=== PATIENT | male | born 1960 | race Caucasian/White ===

== ENCOUNTER 2024-07-30 13:53 | Inpatient (IN) | payer OTHER ==
[2024-07-30 14:21] VITALS: BMI 22.2
[2024-07-30] MEDS ORDERED: MAGNESIUM HYDROX 2400MG/30ML ORAL SUSPENSION 30 ML CUP PO PRN (14:31)
[2024-07-30] MEDS ORDERED: NALOXONE (NARCAN) HCL 4 MG/0.1 ML SPRAY NS PRN (14:31)
[2024-07-30] MEDS ORDERED: guaiFENesin 600 MG TABLET.ER (FP) PO PRN (14:31)
[2024-07-30] MEDS ORDERED: BENZONATATE 200 MG CAPSULE PO PRN (14:31)
[2024-07-30] MEDS ORDERED: LOPERAMIDE HCL 2 MG CAPSULE PO PRN (14:31)
[2024-07-30] MEDS ORDERED: NICOTINE POLACRILEX 2 MG LOZENGE BC PRN (14:31)
[2024-07-30] MEDS ORDERED: MAG HYDROX/AL HYDROX/SIMETH 30 ML UNIT-DOSE CUP PO PRN (14:31)
[2024-07-30] MEDS ORDERED: POLYETHYLENE GLYCOL (HEALTHYLAX) 3350 17 GM PACKET PO PRN (14:31)
[2024-07-30] MEDS ORDERED: BENZOCAINE/MENTHOL (CHLORASEPTIC ) LOZENGE MM PRN (14:31)
[2024-07-30] MEDS ORDERED: IBUPROFEN 400 MG TABLET (FP) PO PRN (14:31)
[2024-07-30] MEDS ORDERED: NICOTINE POLACRILEX 2 MG GUM BUC PRN (14:31)
[2024-07-30 19:17] LABS: URINE APPEARANCE CLEAR; URINE BILIRUBIN NEGATIVE (NEGATIVE); URINE COLOR DK YELLOW; URINE GLUCOSE (UA) NEGATIVE (NEGATIVE); URINE KETONE NEGATIVE (NEGATIVE); URINE LEUK ESTERASE NEGATIVE (NEGATIVE); URINE NITRITE NEGATIVE (NEGATIVE); URINE PROTEIN NEGATIVE (NEGATIVE)
[2024-07-30] MEDS: THIAMINE 100 MG TABLET PO SCH (21:21)
[2024-07-30] MEDS: MELATONIN 5 MG TABLETS PO SCH (21:21)
[2024-07-30] MEDS: hydrOXYzine PAMOATE 25 MG CAPSULE (FP) PO PRN (21:21)
[2024-07-31] MEDS: methaDONE HCL 10 MG TABLET PO SCH (09:12)
[2024-07-31] MEDS: PRENATAL VITAMINS W/ FOLIC ACID TABLET (FP) PO SCH (09:29)
[2024-07-31 11:02] LABS: HEMATOCRIT 45.5 % (40.1-51.0); HEMOGLOBIN 14.8 g/dL (13.7-17.5); MCHC 32.5 g/dl (32.3-36.5); MEAN CELL VOLUME 93.6 fl (79.0-92.2); MEAN PLT VOLUME 9.7 fl (9.4-12.4); PLATELET COUNT 186 x10^3/uL (163-337); RDW 13.4 % (12.2-16.4)
[2024-07-31 11:04] LABS: CHLORIDE 109 mmol/L (98-107); SODIUM 140 mmol/L (136-145)
[2024-07-31 11:10] LABS: CALCIUM 8.7 mg/dL (8.5-10.1)
[2024-07-31 11:11] LABS: ANION GAP 3 mmol/L (4-13); BLOOD UREA NITROGEN 15.7 mg/dL (7-18); CO2 28 mmol/L (21-32); GLUCOSE,RANDOM 101 mg/dL (74-106)
[2024-07-31 11:14] LABS: CREATININE 0.7 mg/dL (0.55-1.3); SGOT/AST 461 U/L (15-37); SGPT/ALT 595 U/L (13-61)
[2024-07-31 11:16] LABS: BILIRUBIN,TOTAL 0.4 mg/dL (0.2-1); TOT PROT 6.5 g/dl (6.4-8.2)
[2024-07-31 11:17] LABS: ALK PHOS 107 U/L (45-117)
[2024-07-31 11:33] LABS: SYPHILIS W/ RPR CONF NON-REACTIVE (NONREACTIVE)
[2024-07-31 12:12] LABS: HIV INTERPRETATION NEGATIVE (NEGATIVE)
[2024-07-31 12:50] LABS: HCV DIAGNOSTIC IN-HOUSE W/RFLX REACTIVE (NONREACTIVE)
[2024-07-31] MEDS: IBUPROFEN 600 MG TABLET (FP) PO PRN (21:30)
[2024-08-04] MEDS: ACETAMINOPHEN 325 MG TABLET (FP) PO PRN (10:40)
[2024-08-04 14:50] LABS: ABSOLUTE IMMATURE GRANULOCYTES 0.01 x10^3/uL (0.0-0.031); BASOPHILS # 0.03 x10^3/uL (0.01-0.08); EOSINOPHIL % 3.7 % (0.8-7.0); EOSINOPHILS # 0.18 x10^3/uL (0.04-0.54); HEMATOCRIT 46.7 % (40.1-51.0); HEMOGLOBIN 14.9 g/dL (13.7-17.5); MCHC 31.9 g/dl (32.3-36.5); MEAN CELL VOLUME 94.5 fl (79.0-92.2); MEAN PLT VOLUME 10.1 fl (9.4-12.4); MONOCYTE # 0.68 x10^3/uL (0.30-0.82); MONOCYTE % 13.8 % (5.3-12.2); PLATELET COUNT 183 x10^3/uL (163-337); RDW 13.2 % (12.2-16.4)
[2024-08-04 14:54] LABS: INR 1.02 (0.83-1.09); PROTHROMBIN TIME (PATIENT) 11.2 SEC (9.7-13.0)
[2024-08-04 14:57] LABS: POTASSIUM 4.2 mmol/L (3.5-5.1)
[2024-08-04 15:11] LABS: CALCIUM 8.8 mg/dL (8.5-10.1)
[2024-08-04 15:12] LABS: ALBUMIN 3.1 g/dl (3.4-5.0); BLOOD UREA NITROGEN 15.1 mg/dL (7-18); CREATININE 0.8 mg/dL (0.55-1.3); MAGNESIUM 2.3 mg/dL (1.8-2.4)
[2024-08-04 15:17] LABS: BILIRUBIN,TOTAL 0.7 mg/dL (0.2-1); TOT PROT 6.9 g/dl (6.4-8.2)
[2024-08-04 15:54] LABS: HIV INTERPRETATION NEGATIVE (NEGATIVE)
[2024-08-06] MEDS: SALICYLIC ACID (WART REMOVER) 9 ML LIQUID TP SCH (17:29)
[2024-08-06] MEDS: TOLNAFTATE 1% CREAM 15 GM TUBE TP SCH (21:22)
[2024-08-06] MEDS: MIRTAZAPINE 15 MG TABLET (FP) PO SCH (21:23)
[2024-08-16 06:52] VITALS: RESP 16
[2024-08-18 05:44] VITALS: BP 133/87; PULSE 77; TEMP 97.3
== END 2024-08-18 09:48 | disposition home or self-care (01) | DRG 772 ==
LOC: SUATTDRO → YASAS 13:53 → Y3NR 16:55 → Y3W 07-31 10:58
PROVIDERS: ADMIT Allergy & Immunology; ATTEND Psychiatry & Neurology Pain Medicine
PROC: HZ42ZZZ Group Counseling for Substance Abuse Treatment, Cognitive-Behavioral (ICD-10-PCS; principal; 2024-07-30)
DX: F10.20 Alcohol dependence, uncomplicated (principal); F14.20 Cocaine dependence, uncomplicated; F11.20 Opioid dependence, uncomplicated; F17.210 Nicotine dependence, cigarettes, uncomplicated; F19.282 Other psychoactive substance dependence with psychoactive substance-induced sleep disorder; K70.10 Alcoholic hepatitis without ascites; K75.4 Autoimmune hepatitis; B18.2 Chronic viral hepatitis C
CPT/HCPCS: 36415; 71045-TC-FY; 80053; 80305; 80307; 81003; 82105; 82140; 82652; 83516; 83735; 85025; 85027; 85610; 86038; 86704; 86709; 86780; 86803; 87340; 87389; 87517; 87522; 87811; 93005; 93010